=== PATIENT | male | born 1945 | race Caucasian/White ===

== ENCOUNTER 2016-08-03 09:20 | Emergency (ER) | payer MEDICARE, OTHER ==
[2016-08-03 10:09] LABS: BLOOD UREA NITROGEN 14 mg/dL (7-18); CALCIUM 9.1 mg/dL (8.7-10.7); CARBON DIOXIDE 26 mmol/L (21-32); CREATININE 1.1 mg/dL (0.6-1.3); GLUCOSE,RANDOM 108 mg/dL (70-99); SODIUM 136 mmol/L (136-145)
== END 2016-08-03 10:45 | disposition home or self-care (01) ==
LOC: EDSTATUS 09:20 → ER 09:21
PROVIDERS: Family Medicine
DX: E87.5 Hyperkalemia (principal); I10 Essential (primary) hypertension; Z95.1 Presence of aortocoronary bypass graft
CPT/HCPCS: 36415; 80048; 84132; 93005; 99283; 99284-25